=== PATIENT | female | born 1990 | race Caucasian/White ===

== ENCOUNTER 2022-10-23 12:40 | Outpatient (CLI) | payer MEDICAID, SELFPAY | END 2022-10-23 12:41 | disposition home or self-care (01) | LOC: NFLDREF 10-31 09:12 | PROVIDERS: Visit Provider Registered Nurse | DX: R35.0 Frequency of micturition (principal); N39.0 Urinary tract infection, site not specified | CPT/HCPCS: 87086; 87186 ==

== ENCOUNTER 2024-09-05 12:49 | Outpatient (CLI) | payer BC, SELFPAY | END 2024-09-05 12:50 | disposition home or self-care (01) | LOC: NFLDREF 09-12 04:28 | DX: R82.90 Unspecified abnormal findings in urine (principal) | CPT/HCPCS: 87086 ==